=== PATIENT | male | born 1965 | race Caucasian/White ===

== ENCOUNTER → 2023-12-12 | Outpatient (CLI) | payer SELFPAY ==
--- NOTE | 2023-12-12 14:10 | CT_ITS ---
STUDY: CT CHEST, ABDOMEN T PELVIS WITH CONTRAST REASON FOR EXAM: Male, 58 years old. follow up treated rectal cancer RADIATION DOSAGE (If Supplied By Facility): CTDIvol = ( 13.84 ) mGy, DLP = ( 1267.02 ) mGycm TECHNIQUE: Transaxial imaging was performed following intravenous administration of Oral and amp; IV Readi-CAT and amp; 100mL Isovue-300. Multiplanar coronal and sagittal images were reformatted. Individualized dose optimization techniques were used for this CT. COMPARISON: No relevant prior comparison study available FINDINGS: CHEST Lungs/pleura: The central airways are patent. No consolidation. No pulmonary nodule or mass. There is no demonstrated pleural abnormality. No pneumothorax. Mediastinum: Normal heart and pericardium. Coronary artery calcifications are seen. Normal mediastinum. Normal hilar regions. No central pulmonary embolism. Normal aorta arch and descending thoracic aorta. Chest wall: No axillary lymphadenopathy or chest wall mass. ABDOMEN/PELVIS Liver/gallbladder/biliary tree: The liver is normal in size, shape, and attenuation. No biliary ductal dilatation. Nonspecific scattered subcentimeter hypoattenuating lesions are seen. Stone in the gallbladder lumen. No wall thickening or adjacent inflammation. Pancreas: Normal pancreas. Spleen: Normal in size. No splenic lesion. Adrenal glands: Normal bilateral adrenal glands. Kidneys: The right kidney is normal in size, shape, and position. No hydronephrosis or nephrolithiasis. The left kidney is normal in size, shape, and position. No hydronephrosis or nephrolithiasis. GI tract: Normal visualized stomach. Normal small bowel. Contrast extends to the cecum. Moderate diffuse colonic stool burden. Distal colonic anastomosis. No colonic wall thickening or inflammation. The appendix is visualized and appears normal. Lymphovascular: Normal caliber abdominal aorta with mild atherosclerotic calcification. Normal inferior vena cava. Normal retroperitoneum. No retroperitoneal or mesenteric lymphadenopathy. Abdominal wall: Small fat-containing inguinal hernias. Bladder: Normal urinary bladder. Pelvic viscera: There is no pelvic fluid. There is no pelvic lymphadenopathy or mass lesion. OSSEOUS STRUCTURES No acute or suspicious osseous abnormality. Degenerative change throughout the spine with accentuated kyphosis of the thoracic spine. CT/CT Chest, Abd, Pel w/Contrast IMPRESSION: No suspicious findings in the chest, abdomen, or pelvis to suggest metastatic disease. Gallstones. No evidence of cholecystitis. Electronically Signed: Mani Jasso MD at 1:24 EST ,
[2023-12-12 14:36] LABS: CREATININE FINGERSTICK < 1.0 mg/dL (0.70-1.30); EGFR FINGERSTICK > 60.0000 mL/min (>60)
== END | disposition home or self-care (01) ==
LOC: CT 14:09
PROVIDERS: PCP Physician Assistant; Referring Provider Student in an Organized Health Care Education/Training Program; Visit Provider Student in an Organized Health Care Education/Training Program
DX: C20 Malignant neoplasm of rectum (principal)
CPT/HCPCS: 71260; 74177; Q9967

== ENCOUNTER → 2024-12-24 | Outpatient (CLI) | payer SELFPAY, OTHER ==
--- NOTE | 2024-12-24 12:58 | CT_ITS ---
PROCEDURE: CT CHEST, ABD, PEL W/CONTRAST 12/24/2024 REASON FOR EXAM: H/O RECTAL CANCER, STAGING EVAL TECHNIQUE: Chest, abdomen and pelvis CT with intravenous contrast. Coronal and Sagittal reconstruction series were provided. One or more dose reduction techniques were used (e.g., Automated exposure control, adjustment of the mA and/or kV according to patient size, use of iterative reconstruction technique. PATIENT PREPARATION: Per protocol ORAL CONTRAST TYPE: None. CONTRAST: Isovue-300 VOLUME: 100mL RADIATION DOSE SUMMARY: CTDlvol: 10.8 mGy DLP: 759.02 mGycm COMPARISON: Prior study dated December 12, 2023. FINDINGS: CT CHEST: Hardware: None Lymph nodes: No significant lymph nodes are seen. Heart and Vasculature: The heart is nonenlarged. Atherosclerotic calcifications of the thoracic aorta. Pulmonary arteries are unremarkable. Coronary artery calcification. Lungs and Airways: Mild linear scarring at the lung bases. Pleura: No pleural effusion. Bones: Degenerative changes of the thoracic spine. CT ABDOMEN/PELVIS: Liver: Stable scattered subcentimeter cystic structures in the liver. Gallbladder: Gallstones. Spleen: Normal size. Pancreas: Normal size without evidence of mass surrounding inflammation or ductal dilation. Adrenals: Unremarkable Kidneys: Normal renal sizes. No hydronephrosis. Bladder: Unremarkable Bowel: Colonic diverticulosis without diverticulitis.. Distal colonic anastomosis once again seen. Appendix: The appendix is not identified. There is no inflammatory process identified in the right lower quadrant to suggest appendicitis. Lymph nodes: Unremarkable. Vasculature: Mild diffuse atherosclerotic calcifications are noted. Peritoneum / Retroperitoneum: Bilateral inguinal hernias containing fat right greater than left. Bones: Degenerative changes of the spine. CT/CT Chest, Abd, Pel w/Contrast IMPRESSION: Stable examination. Reading Location: [id number]
== END | disposition home or self-care (01) ==
LOC: CT 12:56
PROVIDERS: PCP Physician Assistant; Referring Provider Student in an Organized Health Care Education/Training Program; Visit Provider Student in an Organized Health Care Education/Training Program
DX: C20 Malignant neoplasm of rectum (principal)
CPT/HCPCS: 71260; 74177; Q9967